=== PATIENT | male | born 1940 | race Caucasian/White ===

== ENCOUNTER 2016-06-04 09:38 | Outpatient (CLI) | END 2016-06-04 09:39 | disposition home or self-care (01) | LOC: OUTPT 09:38 | PROVIDERS: ATTEND Family Medicine | DX: N40.1 Benign prostatic hyperplasia with lower urinary tract symptoms (principal) | CPT/HCPCS: 51798 ==

== ENCOUNTER 2016-06-17 10:03 | Outpatient (CLI) ==
[2016-06-17 10:17] VITALS: BP 136/86; TEMP 98.7
== END 2016-06-17 10:30 | disposition home or self-care (01) ==
LOC: OUTPT 10:03
PROVIDERS: ATTEND Family Medicine
DX: N40.1 Benign prostatic hyperplasia with lower urinary tract symptoms (principal); N52.9 Male erectile dysfunction, unspecified
CPT/HCPCS: 51798